=== PATIENT | female | born 1970 | race Caucasian/White ===

== ENCOUNTER 2017-09-23 16:25 | Emergency (ER) | payer MEDICAID ==
[~2017-09-23] VITALS: Ht 165.1 cm; Wt 125.2 kg
--- OUTSIDE RECORDS SUMMARY | 2017-09-23 16:30 | External Medical Summary Rpt | CCD ---
Author Author , EDWARD LEON Address Unknown Phone [email or web address] Purpose Continuity of Care Document - through 2016
--- OUTSIDE RECORDS SUMMARY | 2017-09-23 16:30 | External Medical Summary Rpt | CCD ---
Author Author , EDWARD LEON Address Unknown Phone [email or web address] Purpose Continuity of Care Document - through 2016
--- OUTSIDE RECORDS SUMMARY | 2017-09-23 16:31 | External Medical Summary Rpt | CCD ---
Demographics Preferred Language Trinidadian Marital Status Unknown Quaker Affiliation Unknown Race Unknown Ethnic Group Unknown Author Author , EDWARD LEON Address Unknown Phone Immunization No patient found.
--- OUTSIDE RECORDS SUMMARY | 2017-09-23 16:31 | External Medical Summary Rpt | CCD ---
Author Author [employer] Address Unknown Phone Unavailable Purpose Continuity of Care Document - through 2016
--- OUTSIDE RECORDS SUMMARY | 2017-09-23 16:31 | External Medical Summary Rpt ---
Author Author EDWARD Xie, EDWARD [employer] Address Unknown Phone Unavailable
--- OUTSIDE RECORDS SUMMARY | 2017-09-23 16:31 | External Medical Summary Rpt ---
Author Author EDWARD Xie, DEWARD [employer] Address Unknown Phone Unavailable
--- OUTSIDE RECORDS SUMMARY | 2017-09-23 16:31 | External Medical Summary Rpt | CCD ---
Demographics Preferred Language [place] Island[place] Marital Status Unknown Religion Affiliation Unknown Race Unknown Ethnic Group Unknown Author Author , EDWARD LEON Address Unknown Phone Immunization No patient found.
[2017-09-23] MEDS ORDERED: CLARITIN 10MG T10 MG PO (18:29)
[2017-09-23] MEDS ORDERED: FLONASE 50 MCG16 GM (18:29)
--- NOTE | 2017-09-23 18:30 | Urgent Treatment Center Report ---
History of Present Issue Date/Time Seen by Provider 09/23/17 1720 Visit Reason Pt arrived:Walked Presenting Problem:PT C/O SORE THROAT AND LT EAR PAIN Location if Accident: Onset of symptoms date/time:/ or onset unknown for:MEDICAL HX UNKNOWN Have you (or family members/close friends) recently traveled outside the [place]? N If Yes, where/when: Have you had exposure to infectious disease within the past month? TB? Other? Specify: c/o sore throat x 2-3 days w/ left ear pain today. Sore throat worse at night and in the morning, improved w/ drinking. No known fevers but feeling feverish at times. Left ear pain described as pressure. Hasn't taken or tried anything for symptoms. Source patient Exam Limitations no limitations ALLERGIES Coded Allergies: No Known Allergies (09/23/17) History Medical History General CAD? No Angina: No MN: No Hypertension? No Hyperlipidemia? No CHF? No DVT? No PE? No COPD? No Asthma? No Anemia? No GERD? No Gastric ulcers? No GI Bleed? No Hernia? No Thyroid Problems? No Hypothyroidism? No CVA? No Seizures? No Diabetes? No Renal Insuffiency? No UTI? No Stones? No BPH? No GB Disease: No Nephritic Syndrome? No Asplenia? No Hepatitis? No Sickle Cell Disease? No Arthritis? No Migraines? No Cataracts? No Glaucoma? No MRSA? No HIV? No TB? No Anxiety? No Depression? No Cancer? No More? No Immunization HX DT/Tetanus Unknown Surgical Hx Previous Surgery?N Social History Smoking Hx Smoker: Never Smoker Tobacco: No Alcohol Alcohol: No Review of Systems All Other Systems Reviewed and Negative Constitutional see HPI, chills (first day) Eyes denies drainage ENT see HPI, nose discharge, nose congestion. denies: ear discharge, throat swelling, other (change in hearing). Respiratory denies cough Gastrointestinal denies no symptoms reported Musculoskeletal denies joint pain Skin denies rash Psychiatric/Neurological denies headache (initially, intermittent, mild) Physical Exam Vital Signs Vital Signs Date Time Temp Pulse Resp B/P Pulse O2 O2 Flow FiO2 Ox Delivery Rate 09/23 1700 97.8 64 20 138/85 97 General Appearance normal appearance, no apparent distress Eye Exam - bilateral eye normal exam Ear, Nose, Throat normal ENT inspection Neck non-tender, supple Respiratory Status No: respiratory distress, productive cough, non productive cough. Lung Sounds anterior: lungs clear. posterior: lungs clear. bilateral: lungs clear. Cardiovascular regular rate/rhythm, no peripheral edema, no murmur Neurologic alert, oriented x 3 Skin normal color, warm/dry Lymphatic no adenopathy Medical Decision Making LABS/Meds/Orders Pt receiving controlled substance in ED? No Results/Orders Laboratory Tests 09/23/17 1640: Group A Strep Screen NOT DETECTED Orders Procedure Date/time Status [facility] STREP SCREEN 09/23 1640 Complete Departure Departure Time of Disposition 182 Disposition DC Home or Self Care(routine) Clinical Impression Primary Impression: Upper respiratory virus Condition STABLE Referrals NO REFERRAL Follow up with primary care IMMEDIATELY for new or worsening symptoms OR no noticeable improvement over the next 48-72 hours. 911 for difficulty breathing or swallowing. Patient Instructions DI for Viral Upper Respiratory Infection -- Adult Additional Instructions * No sign of bacterial infection. Likely viral. Virus can take 7-14 days to run their course * Monitor Temp. Tylenol every 4 hours as needed no more then 5 times a day or 4000mg in 24 hours and/or ibuprofen every 6 hours as needed no more then 3200mg in 24 hours (as long as your primary care doctor has told you that it is ok to take both) for fever/aches/pain. ER if fever no less than 101 despite tylenol and ibuprofen * Encourage fluids, water, gatorade, powerade, pedialyte if infant/toddler/child * warm salt water gargles * warm fluids * sore throat lozenges * sleep elevated * humidifier/vaporizer * flonase 2 sprays each nostril daily but may take 2-3 days to notice improvement with it. * * Your throat swab was sent for culture. Those results are typically sent to your primary care. Be sure to follow up in 2-3 days if no improvement so they can review those results and treat if necessary. If you don't have primary care, I recommend you get one but in the mean time, you will have to return to a walk in clinic. Discharge Counseling Counseled pt/family regarding diagnosis, test results, medications/RX, home care, follow up needs Prescriptions Current Visit Scripts Loratadine (Claritin 10MG) 10 MG PO DAILY #30 TAB Fluticasone Propionate (Flonase 50 Mcg Nasal Sulphur) 2 SPRAY NA DAILY #1 BOT at 1830
[2017-09-23 18:47] VITALS: BP 138/85
== END 2017-09-23 18:50 | disposition home or self-care (01) ==
LOC: UTC 16:25
DX: J06.9 Acute upper respiratory infection, unspecified (principal)